=== PATIENT | male | born 1935 | race Caucasian/White ===

== ENCOUNTER 2016-11-25 22:20 | Inpatient (IN) ==
--- NOTE | 2016-11-25 22:51 | Emergency Department Note ---
Arrival - Arrival Chief Complaint: Arrhythmia/Palpitations Stated Complaint: Transfer from [facility] for A-fib RVR ED Nursing Triage Note: Patient went to [facility] for heart palpitations and shortness of breath. Patient was found to be in A-fib with RVR. Patient was given two doses of Lopressor for a total of 7.5 mg of lopressor. Patient was transfered here from [facility] for [facility] level of care and cardiology not avialable at sending facility. Mode of Arrival: Stretcher Limitations: No Limitations Time Seen by Provider: 11/25/16 22:46 - History of Present Illness HPI Narrative: This 81-year-old white male presents on transfer from [facility] for further evaluation of chest pain associated with an episode of atrial fibrillation converted back to sinus. The patient earlier this evening had a rapid irregular heartbeat associated with chest pain but without shortness of breath, nausea, vomiting, or diaphoresis. He reports prior episodes that spontaneously ceased and in fact has been seen by Dr. Roach in an effort to identify his problem. While at [facility] because of initial laboratory findings he underwent CTA which was negative for pulmonary emboli. Likewise notable was negative cardiac enzymes. He was transferred here for further evaluation and treatment as chest pain continued to linger. He still complains of a left lower chest left upper quadrant low-grade discomfort but otherwise is medically stable. Onset (ago): hour(s) (Patient presents 4 hours post incident) Allergies/Adverse Reactions: Allergies Allergy/AdvReac Type Severity Reaction Status Date / Time No Known Allergies Allergy Verified 10/04/15 14:15 Home Medications: Home Medications Medication Instructions Recorded Confirmed Type HYDROcodone/ACETAMIN 10-325 [[place] 1 tablet PO Q3-4H PRN 10/04/15 10/04/15 History 10-325] Medical,Surgical,& Family Hx - Medical History Cardio: History of: Cardiac Dysrhythmia, CAD, Hypertension, Cardiovascular Problems (angina) Rheumatology: History of;: Fibromyalgia Genitourinary: History of: Prostate Problems Gastrointestinal: History of: GERD, GI Problems (STOMACH ULCERS) - Surgical History Cardiac Surgeries: Patient Denies: Cardiac Catheterization Thoracic Surgeries: Patient denies;: Organ Transplant, Lobectomy Neurologic Surgeries: Patient denies: Neurologic Surgery Abdominal Surgeries: Surgical HX of: Cholecystectomy Patient denies: Abdominal Surgery - Social History Smoking Status: Never smoker Frequency of Alcohol Use: None Type of Drug Use: None Exam Physical Examination: GENERAL: Well developed, well nourished elderly white male in no acute distress. HEENT: Normocephalic. No trauma. Moist mucous membranes. EOMI. PERRLA. ENT NML NECK: Supple. No adenopathy. CARDIAC: Regular. No murmurs. Heart rate 79 CHEST: Clear to auscultation. No respiratory distress. O2 sat 99% ABDOMEN: Soft. Nontender. Active bowel sounds. EXTREMITIES: No trauma. Normal ROM. No pedal edema. SKIN: No diaphoresis. No rash. NEURO: Alert. Neuro intact. No focal deficits. Vital Signs: Vital Signs Temperature 97.9 F 11/25/16 22:21 Pulse Rate 79 11/25/16 22:21 Respiratory Rate 18 11/25/16 22:21 Blood Pressure 147/90 11/25/16 22:21 O2 Sat by Pulse Oximetry 99 11/25/16 22:21 Course - Reevaluation(s) Reevaluation #1: Advised patient and family that he would be admitted for serial blood work and observation. - Consultations Consultation #1: Discussed situation with Dr. Roach who felt this was more appropriate to be a hospitalist admission given the patient was currently in sinus and recommended serial enzymes and observation overnight. Cardiology would see in consultation. Consultation #2: Discussed with the hospitalist service who will admit for further evaluation treatment. Results - Labs Labs: Lab per [facility] white blood cell count 8000, hematocrit 35 sodium 133 potassium 3.9 creatinine 0.67 BUN 15 negative troponin negative urinalysis, d-dimer 4.9 - Impressions EKG sinus rhythm with prolonged ME interval. Normal QRS duration. Nonspecific ST changes. No acute injury pattern noted. - Diagnostic Findings Procedure: CT: image reviewed by me, report reviewed by me (CTA no evidence of pulmonary emboli with clear lungs evidence of previous currently documented prostate metastatic disease) Disposition Clinical Impression: Chest pain, Recent atrial fibrillation, Prostate cancer with bony metastases Case discussed with: patient, patient's family Condition: Guarded Time of Disposition: 23:03
[2016-11-25 23:55] LABS: Troponin I Only < 0.015 NG/ML (0.00-0.045)
[2016-11-26] MEDS ORDERED: ENOXAPARIN 30 MG/0.3 ML SYRINGE SUBCUT SCH (00:30)
--- NOTE | 2016-11-26 00:50 | Hospitalist History & Physical ---
<Subha Gilbert - Last Filed: 11/26/16 01:21> Assessment and Plan - Time spent with patient Time spent with patient: Greater than 30 minutes (1) Chest pain Status: Acute Assessment and plan: Admit to hospitalist services. Consult cardiology. Telemetry. O2 per unit protocol. Serial troponins. ASA 325 mg PO daily. Lopressor 12.5 mg PO BID. BNP, Mag and TSH in AM. Current Visit: Yes (2) A-fib Status: Acute Assessment and plan: As above. Current Visit: Yes (3) Hypertension Status: Chronic Assessment and plan: As above. Current Visit: Yes (4) Prostate cancer Status: Chronic Assessment and plan: [place] 5/325 mg PO every 4 hours PRN pain. Current Visit: Yes History of Present Illness Chief complaint: chest pain History of present illness: Mr. German is a 81 year old male with a history of HTN and prostate cancer with osseous metastasis to T5 and pelvis who presented to the ED today with complaints of left sided chest pain radiating into back. Mr. German reports that this evening, he began to have heart palpitations and shortness of breath, which he has had intermittently before. However, this episode continued for an extended period of time and was accompanied by epigastric pressure, prompting him to present to [facility] ED. His work up there showed him to be in atrial fibrillation, and he was subsequently given two doses of Lopressor 5 mg IV after which he converted to sinus rhythm. His cardiac enzymes were negative, but his D-dimer was elevated at 4.63. CT was negative for PE but did show suggestions of pulmonary arterial hypertension, as well as worsening osseous metastatic disease. Because of lingering chest pain, the patient was transferred to [facility]. Just prior to transfer, the patient was given another 2.5 mg dose of Lopressor IV for elevated BP. At [facility], repeated cardiac enzymes were again normal. Currently, he denies chest pain which he states is intermittent in frequency. Hospitalist services were consulted and the patient will be admitted to the telemetry unit for continued evaluation and management. Home Medications Medication Instructions Recorded Confirmed Type HYDROcodone/ACETAMIN 10-325 [[place] 1 tablet PO Q3H 10/04/15 11/26/16 History 10-325] Allergies Allergy/AdvReac Type Severity Reaction Status Date / Time No Known Allergies Allergy Verified 10/04/15 14:15 Medical,Surgical,& Family Hx - Medical History Cardio: History of: Cardiac Dysrhythmia, CAD, Hypertension, Cardiovascular Problems (angina) Rheumatology: History of;: Fibromyalgia Genitourinary: History of: Prostate Problems (Prostate CA) Gastrointestinal: History of: GERD, GI Problems (STOMACH ULCERS) - Surgical History Cardiac Surgeries: Patient Denies: Cardiac Catheterization Thoracic Surgeries: Patient denies;: Organ Transplant, Lobectomy Neurologic Surgeries: Patient denies: Neurologic Surgery Abdominal Surgeries: Surgical HX of: Cholecystectomy Patient denies: Abdominal Surgery - Social History Smoking Status: Former smoker (Quit in 1972) Have you smoked in the last 12 months: No Frequency of Alcohol Use: None Type of Drug Use: None Marital Status: Lives With:: Spouse Functional capacity: independent ambulation 12 point system: reviewed and no additional remarkable complaints except as stated - Constitutional Constitutional: Absent: anorexia, fatigue, fever(s), malaise, weakness - EENT Eyes: Absent: blurry vision, diplopia, loss of vision Ears: Absent: decreased hearing, ear discharge, ear pain Nose, mouth and throat: Absent: headache(s), nasal congestion, sore throat - Cardiovascular Cardiovascular: Present: chest pain at rest, dyspnea, palpitations. Absent: edema, orthopnea - Respiratory Respiratory: Present: dyspnea. Absent: cough, wheezing - Gastrointestinal Gastrointestinal: Present: bloating. Absent: nausea, vomiting - Genitourinary Genitourinary: Absent: dysuria, flank pain, hematuria - Musculoskeletal Musculoskeletal: Present: arthralgias, back pain, myalgias - Neurological Neurological: Absent: confusion, dizziness, numbness, paresthesias, syncope - Psychiatric Psychiatric: Absent: anxiety, depression - Endocrine Endocrine: Absent: cold intolerance, polydipsia, polyphagia, polyuria - Hematologic/Lymphatic Hematologic/Lymphatic: Absent: easy bleeding, easy bruising Exam - Constitutional Vitals: Period Temp Pulse Resp BP Sys/Chao Pulse Ox Last 24 Hr 97.9 F 79 18 147/90 99 Exam: Constitutional System: Afebrile. Awake, alert and oriented x 3. No distress. No tremulousness. Head: Normocephalic, atraumatic. Ears, Nose and Throat System: No pain or tenderness. No epistaxis or discharge Eyes System: Pupils equal, round, and reactive. Extraocular muscles intact. Neck: Supple, without adenopathy, No jugular venous distention. No thyromegaly, neck mass, or prior surgery apparent. Respiratory System: Chest clear to auscultation. Cardiovascular System: Heart with regular rate and rhythm. No murmur. GI System: Abdomen soft, nontender. Normo active bowel sounds present. Musculoskeletal System: limbs with no pedal edema. Full distal pulses. Normal capillary refill. Neurological System: No discernable sensory deficit. No aphasia Psychiatric System: Conversation is rational Results - Labs Lab Results: I have reviewed the past 24 hour labs <Julissa Ferrara - Last Filed: 11/26/16 03:25> History of Present Illness History of present illness: Mr. German is a 81 year old male Exam - Constitutional Vitals: Period Temp Pulse Resp BP Sys/Chao Pulse Ox Last 24 Hr 97.6 F-97.9 F 67-79 18-18 147-172/85-90 97-100 Results - Impressions Patient seen and examined. I have reviewed the H&P by GISELLE Gilbert, and I agree with the documentation. Patient presents to an outside hospital with complaints of intermittent palpitations, sob, and lightheadness. He denied any chest pain. He was found to have A-fib with RVR with heart rates in the 130s. He spontaneously converted back to NSR, and the patient's symptoms abated. states that he has been having recurring episodes over the past 10 years. Episodes have progressively worsened. He had worn event monitors in the past; however, there were no recording of significant arrythmias. Patient currently denies any diarrhea, fevers, or cough. Vitals reviewed. BP is elevated. Cardiopulmonary exam significant for unlabored respirations, clear lung, and heart is regular. Labs from outside facility reviewed. K/mg/tni x 1: normal. EKG here at [place] [facility]: NSR. CT chest done at outside hospital: negative PE; unchanged pulmonary arterial hypertension. Active Issues: 1. Paroxymal a-fib with RVR, now spontaneously converted to NSR 2. h/o Pulmonary arterial hypertension 3. h/o systemic hypertension Plan: admit to telemetry; trend TNIs; check mg/k/tsh/calcium. Add aspirin and lopressor. Control blood pressure. Consult cardiology. Will likely need echo. DVT prophalaxis. The plan of care may be modified as more information becomes available.
[2016-11-26 05:09] LABS: Magnesium 2.6 MG/DL (1.8-2.4); Thyroid Stimulating Hormone 1.24 uIU/ml (0.358-3.74)
[2016-11-26] MEDS: PANTOPRAZOLE 40 MG TABLET PO SCH (08:33)
[2016-11-26] MEDS ORDERED: METOPROLOL TARTRATE 25 MG TABLET PO SCH (09:00)
[2016-11-26] MEDS ORDERED: ASPIRIN EC 325 MG TABLET PO SCH (09:00)
--- NOTE | 2016-11-26 09:50 | EKG Report ---
Stationary ECG Study 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
[2016-11-26 10:18] LABS: Basophils # 0.1 10*3/uL (0.0-0.2); Basophils % 1.1 % (0.0-0.8); Eosinophils # 0.7 10*3/uL (0.0-0.87); Eosinophils % 9.1 % (0.00-10.9); Hematocrit 34.6 VOL% (42.0-52.0); Hemoglobin 11.7 GM/DL (14.0-18.0); Immature Granulocytes % 1.5 %; Immature Granulocytes Absolute 0.11 #; Lymphocytes # 2.2 10*3/uL (1.4-4.0); Lymphocytes % 30.2 % (21.2-54.2); Mean Corpuscular HGB Conc 33.8 GM/DL (32-36); Mean Corpuscular Hemoglobin 30 PG (27-34); Mean Corpuscular Volume 88.5 FL (87-102); Mean Platelet Volume 9.5 FL (9.6-12.0); Monocytes # 0.8 10*3/uL (0.11-0.8); Monocytes % 10.8 % (1.7-12.7); Neutrophils # 3.4 10*3/uL (1.4-7.4); Neutrophils % 47.3 % (38.7-73.9); Platelet Count 246 T/CUMM (130-400); Red Blood Count 3.91 MC/CUMM (3.8-5.5); Red Cell Distribution Width 12.9 % (9.3-17.3); White Blood Count 7.2 T/CUMM (4-12)
[2016-11-26] MEDS: BISACODYL 5 MG TABLET PO SCH (10:27)
[2016-11-26] MEDS: APIXABAN 2.5 MG TABLET PO SCH ×2 (10:27→22:22)
[2016-11-26 10:53] LABS: Albumin 3.2 G/DL (3.4-5.0); Bilirubin,Total 0.4 MG/DL (0.2-1.0); Calcium 7.8 MG/DL (8.5-10.1); Total Protein 6.8 G/DL (6.4-8.3)
--- NOTE | 2016-11-26 11:26 | Hospitalist Progress Note ---
Assessment and Plan (1) A-fib Status: Acute Assessment and plan: Currently in sinus rhythm, continue metoprolol started low-dose Eliquis, discuss with Dr. Villalobos, echocardiogram ordered Current Visit: Yes (2) Chest pain Status: Acute Assessment and plan: Serial troponins negative. Dr. Villalobos will see him. Hold aspirin for now. Current Visit: Yes (3) Hypertension Status: Chronic Assessment and plan: Controlled on metoprolol Current Visit: Yes (4) Prostate cancer Status: Chronic Assessment and plan: Continue [place] 10 mg every 3 hours. Will add Dulcolax to prevent constipation Current Visit: Yes Hospitalist: Subjective Interval history: Patient has metastatic prostate cancer. He takes [place] 10 mg every 3 hours. He has been taking him out of his own supply. I attempted to discuss adding low -dose fentanyl patch but he said he could not breathe last time they put him on fentanyl. Patient is currently in sinus rhythm. I very discussed his case with Dr. Villalobos who is going to see him shortly. Discussed starting on a low- dose Eliquis. He had an episode of this previously of tachycardia but was in sinus rhythm the time he arrived at the hospital. Patient reports some hematuria in the past. We will repeat his UA. Hold aspirin for now and Lovenox. Discussed CODE STATUS with him he will remain a full code code for now. Discussed risks of stroke with proximal atrial fib until he is high risk without starting blood thinners. Exam - Constitutional Vitals: Period Temp Pulse Resp BP Sys/Chao Pulse Ox Last 24 Hr 97.5 F-97.9 F 66-79 15-18 138-172/71-90 92-100 Exam: Heart Rate-[RRR] Lungs-[CTAB] GI-[+bs soft, NT] Ext-[no edema] Neuro [Motor 5/5], [alert and oriented times 3] psych [normal mood and affect] General [no acute distress] Results - Labs CBC & BMP: 11/26/16 10:08 11/26/16 10:08 Lab Results: I have reviewed the past 24 hour labs
[2016-11-26] MEDS: ASCORBIC ACID 500 MG TABLET PO SCH ×2 (11:35→22:22)
--- NOTE | 2016-11-26 11:43 | Cardiology Consult Note ---
History of Present Illness - Data of Consult Patient: new to practice Consult date: 11/26/16 - Consult Narrative History of present illness: Cardiology consult 81-year-old man transferred from the [facility] with new onset atrial fibrillation. Patient was treated with 5 mg IV Lopressor 2 and converted chemically back to sinus rhythm. The patient has felt irregular heartbeats before but never this sustained. He does have chronic dyspnea. CT of the chest was negative for pulmonary embolus at [facility]. He does not drink coffee but consumes 32 ounces of RC cola daily. He does not drink ice tea. He does not drink any alcohol. He quit smoking in 1972. He had a normal nuclear stress test December 18, 2013 with ejection fraction 56 %. He has been on HCTZ for hypertension in the past but does not take it regularly. Blood pressure 164/90 on presentation. No history of stroke or TIA. No history of diabetes. Patient does have chronic dyspnea and easy fatigability. He sleeps on one pillow and has nocturia 3 or 4 times nightly which is chronic. Patient is 6 feet 3 and weighs 190 pounds. He weighs 212 pounds 6 months ago. The patient was diagnosed with metastatic prostate cancer in 2013. He has been taking Lupron injections and xtandia by Dr. Tafoya. A bone scan done in July 2016 showed progression of bony metastases. He is taking [place] 10/325 mg every 4 hours as needed. Surgeries include laparoscopically cystectomy, right rotator cuff repair, right hernia repair, EKG shows sinus rhythm with preserved airways and ST-T wave changes. Lab data White count 7.2 hemoglobin 11.7 hematocrit 34.6 MCV of 88 sodium 136 potassium 4.0 chloride 103 CO2 27 BUN 13 creatinine 0.7 glucose 107 magnesium 2.6 AST 19 ALT 11 alk phos 302 with negative troponin 2 BNP 122 albumin 3.2 Blood pressure 144/80 pulse is 78 and regular aspirations 18 bilateral arcus. No xanthelasma. Flat neck veins. Decreased breath sounds but clear regular rhythm no murmur or gallop no chest wall tenderness to palpation abdomen soft and benign. Femoral pulses 2+ distal pulses 2+ no edema Impression New onset atrial fibrillation with atypical chest pain and shortness of breath. Converted chemically with IV Lopressor at [facility] Metastatic prostate cancer initially diagnosed 2013 with progressive bony lesions by bone scan July [address] Tafoya. History of hypertension Remote tobacco abuse Weight loss. 6 feet 3 inches tall 190 pounds. Patient weight 212 pounds 6 months ago Chronic dyspnea and easy fatigability which has progressed Atypical chest pain Status post laparoscopic cholecystectomy Plan Begin Eliquis 2.5 g twice daily Echo Doppler Lexiscan cardiac stress test in a.m. 830 Metoprolol 25 g twice daily Findings and plan discussed with patient and his and 2 daughters. Nurse Matilda present for the full discussion CC: Lori Quan MD - Home Medications and Allergies Home Medications: Home Medications Medication Instructions Recorded Confirmed Type HYDROcodone/ACETAMIN 10-325 [[place] 1 tablet PO Q3H 10/04/15 11/26/16 History 10-325] Allergies/Adverse Reactions: Allergies Allergy/AdvReac Type Severity Reaction Status Date / Time No Known Allergies Allergy Verified 10/04/15 14:15 Medical,Surgical,& Family Hx - Medical History Cardio: History of: Cardiac Dysrhythmia, CAD, Hypertension, Cardiovascular Problems (angina) Rheumatology: History of;: Fibromyalgia Genitourinary: History of: Prostate Problems (Prostate CA) Gastrointestinal: History of: GERD, GI Problems (STOMACH ULCERS) - Surgical History Cardiac Surgeries: Patient Denies: Cardiac Catheterization Thoracic Surgeries: Patient denies;: Organ Transplant, Lobectomy Neurologic Surgeries: Patient denies: Neurologic Surgery Abdominal Surgeries: Surgical HX of: Cholecystectomy Patient denies: Abdominal Surgery - Family History Family History: Reports;: Family Cancer (brother), Family Heart Disease, Family Hypertension - Social History Smoking Status: Former smoker (Quit in 1972) Frequency of Alcohol Use: None Type of Drug Use: None Physical Examination Vital Signs Temp Pulse Resp BP Pulse Ox 97.9 F 79 18 147/90 99 11/25/16 22:21 11/25/16 22:21 11/25/16 22:21 11/25/16 22:21 11/25/16 22:21 Result/EKG - Labs CBC & BMP: 11/26/16 10:08 11/26/16 10:08 Labs: Laboratory Results - last 24 hr 11/25/16 11/26/16 11/26/16 23:23 04:08 04:08 WBC RBC Hgb Hct MCV MCH MCHC RDW Plt Count MPV Neut % (Auto) Lymph % (Auto) [place] % (Auto) Eos % (Auto) Baso % (Auto) Neut # (Auto) Lymph # (Auto) Pep[place] # (Auto) Eos # (Auto) Baso # (Auto) Immature Gran % Nucleated RBC % Immature Gran # Nucleated RBCs # Immature Plt Fraction Sodium Potassium Chloride Carbon Dioxide Anion Gap BUN Creatinine GFR Calculation BUN/Creatinine Ratio Glucose Calculated Osmolality Calcium Magnesium 2.6 H Total Bilirubin AST ALT Alkaline Phosphatase Total Creatine Kinase 78 CK-MB (CK-2) < 1.0 Troponin I < 0.015 B-Natriuretic Peptide 122 H Total Protein Albumin Globulin Albumin/Globulin Ratio PSA Diagnostic TSH 3rd Generation 1.240 11/26/16 11/26/16 11/26/16 04:08 10:08 10:08 WBC 7.2 RBC 3.91 Hgb 11.7 L Hct 34.6 L MCV 88.5 MCH 30 MCHC 33.8 RDW 12.9 Plt Count 246 MPV 9.5 L Neut % (Auto) 47.3 Lymph % (Auto) 30.2 [place] % (Auto) 10.8 Eos % (Auto) 9.1 Baso % (Auto) 1.1 H Neut # (Auto) 3.4 Lymph # (Auto) 2.2 Pepin # (Auto) 0.8 Eos # (Auto) 0.7 Baso # (Auto) 0.1 Immature Gran % 1.5 Nucleated RBC % 0.0 Immature Gran # 0.11 Nucleated RBCs # 0.00 Immature Plt Fraction 0.0 Sodium 136 Potassium 4.0 Chloride 103 Carbon Dioxide 27 Anion Gap 10.0 BUN 13 Creatinine 0.70 GFR Calculation 111 BUN/Creatinine Ratio 18.00 Glucose 107 H Calculated Osmolality 271.0 L Calcium 7.8 L Magnesium Total Bilirubin 0.40 AST 19 ALT 11 L Alkaline Phosphatase 302 H Total Creatine Kinase CK-MB (CK-2) Troponin I < 0.015 B-Natriuretic Peptide Total Protein 6.8 Albumin 3.2 L Globulin 3.6 H Albumin/Globulin Ratio 0.8 L PSA Diagnostic TSH 3rd Generation 11/26/16 10:13 WBC RBC Hgb Hct MCV MCH MCHC RDW Plt Count MPV Neut % (Auto) Lymph % (Auto) Pep[place] % (Auto) Eos % (Auto) Baso % (Auto) Neut # (Auto) Lymph # (Auto) Pepin # (Auto) Eos # (Auto) Baso # (Auto) Immature Gran % Nucleated RBC % Immature Gran # Nucleated RBCs # Immature Plt Fraction Sodium Potassium Chloride Carbon Dioxide Anion Gap BUN Creatinine GFR Calculation BUN/Creatinine Ratio Glucose Calculated Osmolality Calcium Magnesium Total Bilirubin AST ALT Alkaline Phosphatase Total Creatine Kinase CK-MB (CK-2) Troponin I B-Natriuretic Peptide Total Protein Albumin Globulin Albumin/Globulin Ratio PSA Diagnostic 24.4 H TSH 3rd Generation
--- NOTE | 2016-11-26 13:09 | XRay Report ---
Portable chest November 26, 2016 Indication: Shortness of breath Comparison images performed previous day at 0612 hours Findings: Cardiomediastinal contours are stable. Lungs remain clear. No acute osseous abnormalities. Impression: No acute cardiopulmonary findings PROCEDURE INTERPRETED AT [facility] DEPARTMENT OF RADIOLOGY Final Report Signed by: Kiel eJwell
[2016-11-26 13:21] LABS: Apearance,Urine CLEAR (Clear); Bilirubin,Urine Negative (Negative); Blood, Urine Negative (Negative); Glucose,Urine (UA) Negative (Negative); Hyaline Casts,Urine 3 /LPF (0-3); Ketones,Urine Negative (Negative); Mucus,Urine Occasional /LPF (Occasional); Nitrite,Urine Negative (Negative); Protein,Urine Negative; RBC,Urine 1 /HPF (0-4); Urine Color Yellow (Yellow); Urine Specific Gravity 1.025 (1.001-1.035); WBC,Urine <1 /HPF (0-6)
--- NOTE | 2016-11-26 13:33 | ECHO Report ---
Jonathon German Exam Date: 11/26/2016 11:37 Referring Physician: Technologist: Lisa Estevez Age: 81 Ht (in): 75 Wt (lb): 190 Gender: M Exam Location: [facility] Echo Indications: SOB, chest pain, A fib, HTN, prostate CA BP: 138 / 71 HR: 68 Rhythm: Sinus Technical Quality: Fair IMPRESSIONS Left ventricular ejection fraction is estimated at 55-60 %. Grade II/IV diastolic dysfunction, moderately elevated filling pressures. Normal right ventricular size. The right atrium is mildly enlarged. The left atrium is mildly enlarged. Morphologically normal mitral valve. Trace mitral valve regurgitation. Aortic valve sclerosis. Trace aortic valve regurgitation. Mild tricuspid valve regurgitation. PAP40 mmHG. Morphologically normal pulmonic valve. No pericardial effusion. Normal size aortic root and proximal ascending aorta. MEASUREMENTS (Male / Female) Normal Values 2D ECHO LV Diastolic Diameter PLAX 4.6 cm 4.2 - 5.9 / 3.9 - 5.3 cm LV Systolic Diameter PLAX 3.0 cm LV Fractional Shortening PLAX 34.3 % IVS Diastolic Thickness 1.0 cm 0.6 - 1.0 / 0.6 - 0.9 cm LVPW Diastolic Thickness 1.2 cm 0.6 - 1.0 / 0.6 - 0.9 cm Aortic Root Diameter 2.6 cm LA Systolic Diameter LX 3.3 cm 3.0 - 4.0 / 2.7 - 3.8 cm DOPPLER TR Peak Velocity 228.0 cm/s TR Peak Gradient 20.8 mmHg FINDINGS Left Ventricle Left ventricular ejection fraction is estimated at 55-60 %. Grade II/IV diastolic dysfunction, moderately elevated filling pressures. Right Ventricle Normal right ventricular size. Right Atrium The right atrium is mildly enlarged. Left Atrium The left atrium is mildly enlarged. Mitral Valve Morphologically normal mitral valve. Trace mitral valve regurgitation. Aortic Valve Aortic valve sclerosis. Trace aortic valve regurgitation. Tricuspid Valve Morphologically normal tricuspid valve. Mild tricuspid valve regurgitation. PAP40 mmHG. Pulmonic Valve Morphologically normal pulmonic valve. Pericardium No pericardial effusion. Aorta Normal size aortic root and proximal ascending aorta. William Villalobos (Electronically Signed) Final Date: 26 November 2016 13:32
[2016-11-26] MEDS: hydrALAZINE 20 MG/1 ML VIAL IV PRN (19:30)
[2016-11-26] MEDS: METOPROLOL TARTRATE 25 MG TABLET PO SCH (20:50)
[2016-11-26] MEDS ORDERED: LABETALOL 20 MG/4 ML SYRINGE IV ONE (21:17)
[2016-11-26] MEDS ORDERED: LISINOPRIL 10 MG TABLET PO SCH (21:19)
[2016-11-27 05:12] LABS: Basophils # 0.1 10*3/uL (0.0-0.2); Basophils % 0.7 % (0.0-0.8); Eosinophils # 0.2 10*3/uL (0.0-0.87); Eosinophils % 2.5 % (0.00-10.9); Hematocrit 33.1 VOL% (42.0-52.0); Hemoglobin 11.2 GM/DL (14.0-18.0); Immature Granulocytes % 2.5 %; Immature Granulocytes Absolute 0.18 #; Lymphocytes # 1.6 10*3/uL (1.4-4.0); Lymphocytes % 21.5 % (21.2-54.2); Mean Corpuscular HGB Conc 33.8 GM/DL (32-36); Mean Corpuscular Hemoglobin 30 PG (27-34); Mean Corpuscular Volume 87.6 FL (87-102); Mean Platelet Volume 9.9 FL (9.6-12.0); Monocytes # 0.7 10*3/uL (0.11-0.8); Monocytes % 9.7 % (1.7-12.7); Neutrophils # 4.5 10*3/uL (1.4-7.4); Neutrophils % 63.1 % (38.7-73.9); Platelet Count 218 T/CUMM (130-400); Red Blood Count 3.78 MC/CUMM (3.8-5.5); White Blood Count 7.2 T/CUMM (4-12)
[2016-11-27] MEDS ORDERED: ONDANSETRON 4 MG/2 ML VIAL ONE (08:02)
[2016-11-27] MEDS: ONDANSETRON 4 MG/2 ML VIAL IV PRN ×2 (08:33→20:23)
[2016-11-27] MEDS: METOPROLOL TARTRATE 25 MG TABLET PO SCH ×2 (12:44→21:03)
[2016-11-27] MEDS: PANTOPRAZOLE 40 MG TABLET PO SCH (12:45)
[2016-11-27] MEDS: ASCORBIC ACID 500 MG TABLET PO SCH ×2 (12:45→21:04)
[2016-11-27] MEDS: BISACODYL 5 MG TABLET PO SCH (12:46)
[2016-11-27] MEDS: APIXABAN 2.5 MG TABLET PO SCH ×2 (12:46→21:03)
--- NOTE | 2016-11-27 14:07 | Cardiology Progress Note ---
Cardiology - PN: Subj Interval history: Cardiology note 81-year-old man with new onset atrial fibrillation. Converted with IV Lopressor 2. Tires easily. Blood pressure was running high last night and lisinopril started. Regular rhythm no murmur. Decreased breath sounds but clear. Normal exercise cardiac stress test today. No scar or ischemia. EF 55%. Low risk scan. Impression New onset atrial fibrillation converted with IV Lopressor Hypertension Remote tobacco abuse Weight loss 6 feet 3 inches tall 190 pounds. Patient weight 212 pounds 6 months ago Chronic dyspnea and easy fatigability which has progressed Unsteady gait Status post laparoscopic cholecystectomy Metastatic prostate cancer diagnosed 2013 now with progressive bony lesions by bone scan July [address] Tafoya. History of GE stricture dilatation by Dr. Abel Porter Plan Ambulate and monitor. Patient needs a cane or walker at all times for gait support Metoprolol 25 mg twice daily Eliquis 2.5 mg twice daily Increase lisinopril 10 mg twice daily Home tomorrow if he maintains sinus rhythm Exam (Progress Note) - Constitutional Vitals: Period Temp Pulse Resp BP Sys/Chao Pulse Ox Last 24 Hr 96.2 F-98.5 F 68-76 16-20 156-188/88-98 95-97 Result/EKG - Labs CBC & BMP: 11/27/16 04:58 11/26/16 10:08 Labs: Laboratory Results - last 24 hr 11/26/16 11/27/16 13:14 04:58 WBC 7.2 RBC 3.78 L Hgb 11.2 L Hct 33.1 L MCV 87.6 MCH 30 MCHC 33.8 RDW 13.0 Plt Count 218 MPV 9.9 Neut % (Auto) 63.1 Lymph % (Auto) 21.5 Grand % (Auto) 9.7 Eos % (Auto) 2.5 Baso % (Auto) 0.7 Neut # (Auto) 4.5 Lymph # (Auto) 1.6 Grand # (Auto) 0.7 Eos # (Auto) 0.2 Baso # (Auto) 0.1 Immature Gran % 2.5 Nucleated RBC % 0.0 Immature Gran # 0.18 Nucleated RBCs # 0.00 Immature Plt Fraction 0.0 Urine Color Yellow Urine Appearance Clear Urine pH 6.0 Ur Specific [place] 1.025 Urine Protein Negative Urine Glucose (UA) Negative Urine Ketones Negative Urine Blood Negative Urine Nitrate Negative Urine Bilirubin Negative Urine Urobilinogen 2.0 H Urine Leukocytes Negative Urine RBC 1 Urine WBC <1 Hyaline Casts 3 Urine Mucus Occasional Ur Culture Indicated? Not indicated
[2016-11-27] MEDS: hydrALAZINE 20 MG/1 ML VIAL IV PRN (16:17)
--- NOTE | 2016-11-27 16:32 | Hospitalist Progress Note ---
Assessment and Plan (1) A-fib Status: Acute Assessment and plan: Remains in sinus rhythm, continue metoprolol twice daily, continue Eliquis Current Visit: Yes (2) Chest pain Status: Acute Assessment and plan: Stress test done today was negative Current Visit: Yes (3) Hypertension Status: Chronic Assessment and plan: Not controlled added losartan Current Visit: Yes (4) Prostate cancer Status: Chronic Assessment and plan: Continue [place] 10 mg every 3 hours. Will add Dulcolax to prevent constipation, patient again refuses any change in his pain medicines. Patient should be discharged home tomorrow Current Visit: Yes Hospitalist: Subjective Interval history: Patient's family said he had a rough night that his blood pressure became extremely elevated. I will start him on losartan. Dr. Villalobos and ordered some lisinopril but it has not been started. Patient had an exercise stress test today and did well. Patient remains in sinus rhythm. Family was under the impression he was tachycardic last night but I have reviewed his rhythms and he was not. Family asked for Dr. Tafoya to be consulted but Dr. Mendoza is on and they do not want to see him. Patient will be more comfortable at home. He has evidence of metastatic cancer. Most likely there is nothing more that can be offered other than pain relief. I again tried to discuss his pain relief with him again today. He refused any additional pain medicines. Exam - Constitutional Vitals: Period Temp Pulse Resp BP Sys/Chao Pulse Ox Last 24 Hr 97.9 F-98.9 F 68-82 18-20 141-188/77-98 95-97 Exam: Heart Rate-[RRR] Lungs-[CTAB] GI-[+bs soft, NT] Ext-[no edema] Neuro [Motor 5/5], [alert and oriented times 3] psych [normal mood and affect] General [no acute distress] Results - Labs CBC & BMP: 11/27/16 04:58 11/26/16 10:08 Lab Results: I have reviewed the past 24 hour labs
--- NOTE | 2016-11-27 17:42 | Nuclear Medicine Report ---
DATE OF STUDY: 11/27/2016 EXERCISE CARDIOLITE GATED SPECT PERFUSION STUDY: PROCEDURE: EXERCISE CARDIOLITE GATED SPECT PERFUSION STUDY. INITIAL IMPRESSION: 1. A 81-YEAR-OLD MAN WITH ATYPICAL CHEST PAIN. 2. HYPERTENSION. 3. ATRIAL FIBRILLATION. 4. ABNORMAL ELECTROCARDIOGRAM. FINAL IMPRESSION: NORMAL EXERCISE CARDIOLITE GATED SPECT PERFUSION STUDY. I. DESCRIPTION OF PROCEDURE: The patient received 10.0 mCi of Technetium-99m, Cardiolite IV, and re st imaging was obtained in the routine manner 20 minutes later. The patient then walked for 4 minute s on the modified Stefan protocol, and achieved a peak heart rate of 104, which is 75% of his predicte d maximal heart rate. At peak exercise, 30.0 mCi of Technetium-99m, Cardiolite IV was injected, and stress imaging was obtained in the routine manner 20 minutes later. Serial electrocardiograms were p erformed. The initial blood pressure was 146/90, and it was 160/86 immediately post exercise. II. RESULTS: The patient had no chest pain or arrhythmias and the test was terminated due to shortn ess of breath and fatigue. A resting EKG demonstrates normal sinus rhythm with preserved R-waves and ST-T wave changes. With exercise, no diagnostic EKG changes occurred. Rare isolated PVCs were note d. Tomographic imaging demonstrates homogeneous uptake of radioisotope in all segments. There is no aislinn dence for ischemia or scar. Gated SPECT imaging demonstrates normal wall motion and thickening in al l segments. The calculated ejection fraction is 55%. III. CONCLUSION: 1. CLINICALLY AND ELECTROCARDIOGRAPHICALLY NEGATIVE. 2. POOR WORK CAPACITY. 3. SCINTIGRAPHICALLY NORMAL PERFUSION STUDY. IV. DISPOSITION: The patient should be reassured regarding the lack of any evidence for significant coronary artery disease at this time. He had no chest pain or diagnostic EKG changes and tomographi c imaging is normal. In addition, ventricular function is well preserved, ejection fraction 55%. Th is is a low-risk scan. Continued medical therapy and risk factor modification recommended. Procedure performed and interpreted at [facility] Department of Radiology.
[2016-11-27] MEDS: LOSARTAN 50 MG TABLET PO SCH (18:29)
[2016-11-27] MEDS ORDERED: LISINOPRIL 10 MG TABLET PO SCH (21:17)
[2016-11-28] MEDS: LOSARTAN 50 MG TABLET PO SCH (08:13)
[2016-11-28] MEDS: ASCORBIC ACID 500 MG TABLET PO SCH (08:13)
[2016-11-28] MEDS: BISACODYL 5 MG TABLET PO SCH (08:14)
[2016-11-28] MEDS: APIXABAN 2.5 MG TABLET PO SCH (08:14)
[2016-11-28] MEDS: PANTOPRAZOLE 40 MG TABLET PO SCH (08:14)
[2016-11-28] MEDS: METOPROLOL TARTRATE 25 MG TABLET PO SCH (08:14)
[2016-11-28] MEDS ORDERED: LOSARTAN 25 MG TABLET PO SCH (08:29)
[2016-11-28] MEDS ORDERED: SODIUM CHLORIDE 0.9% 250 ML IV ONE (08:31)
--- NOTE | 2016-11-28 08:31 | Discharge Summary ---
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 Dr. Villalobos from cardiology was consulted and patient was chemically converted with IV Lopressor to sinus rhythm. He did receive an echocardiogram that showed a EF of 55-60%. Patient's stress test was normal along with his perfusion study. Patient is doing well and feeling better. He has had some issues with some low blood pressure overnight with increased weakness. His blood pressure medicines have been adjusted and new prescriptions have been written. Patient has several daughters who will help him at home and he is not requiring home health at this time. He will be discharged home with a follow-up with Dr. Ring in [place], Dr. Tafoya tomorrow , and Dr. Villalobos as well. Complete discharge instructions were given to the patient and his family members present. Care coordination, chart review, and completed discharge paperwork took approximately 45 minutes. Patients blood pressure meds were modified and he was started on eliquis and a baby aspirin. Patient seen and examined. Hospital course reviewed and edited. - Time spent with patient Time with patient DS: Greater than 30 minutes Diagnosis - Discharge Diagnosis (1) Chest pain Status: Resolved (2) A-fib Status: Resolved (3) Hypertension Status: Chronic (4) Prostate cancer Status: Chronic Specialty Discharge - Follow Up or Referrals Follow up with: Caleb Tafoya MD [Physician] - (as scheduled ) Khanh Villalobos MD [Physician] - 1 Week (htn ) Discharge Plan - Discharge Data Disposition: Disch To Home/Self Care Contact your physician if you experience:: Shortness of breath, pain uncontrolled by pain medications - Discharge Medications New Ascorbic Acid Tab [Vitamin C Tab] 1,000 mg PO BID tablet Bisacodyl Tab [Dulcolax Tab] 10 mg PO DAILY tablet Losartan [Cozaar] 25 mg PO DAILY #30 tablet Metoprolol Tartrate Tab [Lopressor Tab] 25 mg PO BID #60 tablet Apixaban [Eliquis] 2.5 mg PO BID #60 tablet Aspirin EC Tab 81 mg PO DAILY #30 tablet Continue HYDROcodone/ACETAMIN 10-325 [[place] 10-325] 1 tablet PO Q3H - Follow Up or Referral Follow Up: Khanh Villalobos MD [Physician] - 1 Week (htn ) Caleb Tafoya MD [Physician] - (as scheduled ) - Forms/Instructions Instructions: Atrial Fibrillation (DC), Heart Healthy Diet (DC) Exam - Constitutional Vitals: Period Temp Pulse Resp BP Sys/Chao Pulse Ox Last 24 Hr 98 F-99.7 F 66-82 18-20 100-161/58-88 92-98 DS: Provider Date of admission: 11/26/16 10:10 Primary care physician: Maxim Ring M.D. Attending physician on admission: Julissa Ferrara MD Consults: 11/26/16 01:18 Consult to Physician [CONS] Routine Comment: A-fib; chest pain Consulting Provider: Abner Colon 11/26/16 01:26 Consult to Dietitian [CONS] Routine Reason for Dietitian: Other 11/26/16 03:23 Consult to Physician [CONS] Routine Comment: paroxymal a-fib Consulting Provider: Khanh Villalobos When should Consulting Provider be notified: In am Discharging clinician: SRINIVASA Crespo Expected date of discharge: 11/28/16 <Lori Quan - Last Filed: 11/28/16 10:30> Hospital Course - Time spent with patient Time with patient DS: Greater than 30 minutes (45 min) Diagnosis - Discharge Diagnosis (1) A-fib Status: Resolved (2) Chest pain Status: Resolved (3) Hypertension Status: Chronic (4) Prostate cancer Status: Chronic Discharge Plan - Discharge Data Condition at Discharge: Stable Discharge Diet: heart healthy Activity: resume usual activities as tolerated Hygiene: no restrictions Weight Bearing at Discharge: full weight bearing Driving: other (no driving while on narcotics) Exam - Constitutional General appearance: normal weight, no acute distress - Respiratory Respiratory exam: Present: clear to auscultation bilaterally. Absent: rhonchi, wheezes - Cardiovascular Cardiovascular exam: Present: regular rate and rhythm. Absent: systolic murmur - GI/Abdominal GI/Abdominal exam: Present: normal bowel sounds, soft. Absent: tenderness - Neurological Exam Neurological exam: Present: alert, oriented X3, CN II-XII intact, reflexes normal. Absent: motor sensory deficit - Psychiatric Psychiatric exam: Present: normal affect, normal mood
--- NOTE | 2016-11-28 11:20 | Cardiology Progress Note ---
Cardiology - PN: Subj Interval history: Cardiology note No further atrial fibrillation. Blood pressure 112/70 in the right arm by me Regular rhythm no gallop Clear lungs Abdomen benign Impression New onset atrial fibrillation converted with IV Lopressor Hypertension Remote tobacco abuse Weight loss 643 inches tall 187 pounds. 212 pounds 6 months ago. Chronic dyspnea Unsteady gait Status post laparoscopic cholecystectomy Metastatic prostate cancer diagnosed 2013 with progressive bony lesions by bone scan July 2016 follow-up with Dr. Muniz History of GE stricture dilatation by Dr. Abel Louis Plan Agree with discharge Metoprolol 25 mg twice daily Cozaar 25 mg daily Eliquis 2.5 g twice daily Office visit with EKG in 1 week Exam (Progress Note) - Constitutional Vitals: Period Temp Pulse Resp BP Sys/Chao Pulse Ox Last 24 Hr 98 F-99.7 F 66-82 18-20 100-161/58-88 92-98 Result/EKG - Labs CBC & BMP: 11/27/16 04:58 11/26/16 10:08 Specialty Discharge - Follow Up or Referrals Follow up with: Caleb Tafoya MD [Physician] - (as scheduled ) Khanh Villalobos MD [Physician] - 1 Week (htn )
[2016-11-28 11:47] VITALS: BP 122/68
== END 2016-11-28 11:42 | disposition home or self-care (01) | DRG 309 ==
LOC: EDUNIT# → EDBD → N.ED 22:20 → N.EDINP 22:20 → SUATTDRO 11-26 00:10 → N.TELEN 11-26 00:55
PROVIDERS: ADMIT Internal Medicine; ATTEND Internal Medicine

== ENCOUNTER 2017-01-16 08:48 | Observation (INO) ==
[2017-01-16] MEDS ORDERED: NITROGLYCERIN 2% OINT 1 INCH/GM PACK TOP STA (09:26)
[2017-01-16] MEDS ORDERED: ASPIRIN 325 MG TABLET PO STA (09:26)
[2017-01-16] MEDS ORDERED: METOPROLOL TARTRATE 25 MG TABLET PO STA (09:26)
[2017-01-16 09:36] LABS: Basophils # 0.1 10*3/uL (0.0-0.2); Basophils % 0.7 % (0.0-0.8); Eosinophils # 0.6 10*3/uL (0.0-0.87); Eosinophils % 7.8 % (0.00-10.9); Hematocrit 28.2 VOL% (42.0-52.0); Hemoglobin 9.3 GM/DL (14.0-18.0); Immature Granulocytes % 4.4 %; Immature Granulocytes Absolute 0.31 #; Lymphocytes # 1.5 10*3/uL (1.4-4.0); Lymphocytes % 20.5 % (21.2-54.2); Mean Corpuscular Hemoglobin 28 PG (27-34); Mean Corpuscular Volume 85.7 FL (87-102); Mean Platelet Volume 9.3 FL (9.6-12.0); Monocytes # 0.7 10*3/uL (0.11-0.8); Monocytes % 10.3 % (1.7-12.7); Neutrophils % 56.3 % (38.7-73.9); Platelet Count 244 T/CUMM (130-400); Red Blood Count 3.29 MC/CUMM (3.8-5.5); Red Cell Distribution Width 15.9 % (9.3-17.3); White Blood Count 7.1 T/CUMM (4-12)
[2017-01-16] MEDS ORDERED: ASPIRIN 325 MG TABLET ONE (09:40)
[2017-01-16] MEDS ORDERED: NITROGLYCERIN 2% OINT 1 INCH/GM PACK TOP ONE (09:40)
[2017-01-16] MEDS ORDERED: METOPROLOL TARTRATE 25 MG TABLET ONE (09:40)
[2017-01-16 09:41] LABS: PT Patient Result 10.7 SECS
[2017-01-16] MEDS ORDERED: ONDANSETRON 4 MG/2 ML VIAL ONE (09:51)
[2017-01-16] MEDS ORDERED: ONDANSETRON 4 MG/2 ML VIAL IV STA (09:51)
[2017-01-16 09:59] LABS: Albumin 2.5 G/DL (3.4-5.0); Bilirubin,Total 0.4 MG/DL (0.2-1.0); Calcium 7.3 MG/DL (8.5-10.1); Magnesium 2.3 MG/DL (1.8-2.4); Osmolality,Calculated 270.1 MOS/KG (273-304); Potassium 3.9 MMOL/L (3.5-5.1); Total Protein 6.2 G/DL (6.4-8.3)
[2017-01-16] MEDS ORDERED: MORPHINE 2 MG/1 ML SYRINGE IV STA (10:15)
[2017-01-16] MEDS ORDERED: MORPHINE 2 MG/1 ML SYRINGE ONE (10:45)
[2017-01-16] MEDS ORDERED: DOCUSATE SODIUM 100 MG CAPSULE PO PRN (12:29)
[2017-01-16] MEDS ORDERED: ACETAMINOPHEN 325 MG TABLET PO PRN (12:29)
[2017-01-16] MEDS ORDERED: ONDANSETRON 4 MG/2 ML VIAL IV PRN (12:29)
[2017-01-16] MEDS ORDERED: LACTULOSE 20 GM/30 ML UDCUP PO PRN (12:29)
[2017-01-16] MEDS ORDERED: MORPHINE 2 MG/1 ML SYRINGE IV PRN (12:29)
[2017-01-16] MEDS: ASPIRIN EC 81 MG TABLET PO SCH (14:16)
[2017-01-16] MEDS: ENOXAPARIN 40 MG/0.4 ML SYRINGE SUBCUT SCH (14:56)
[2017-01-16] MEDS: METOPROLOL TARTRATE 25 MG TABLET PO SCH (21:02)
[2017-01-17 03:50] LABS: Basophils % 0.6 % (0.0-0.8); Calcium 7.4 MG/DL (8.5-10.1); Eosinophils # 0.7 10*3/uL (0.0-0.87); Eosinophils % 10.5 % (0.00-10.9); Hematocrit 27.4 VOL% (42.0-52.0); Hemoglobin 8.9 GM/DL (14.0-18.0); Immature Granulocytes % 4.7 %; Immature Granulocytes Absolute 0.31 #; Lymphocytes # 1.8 10*3/uL (1.4-4.0); Lymphocytes % 27.1 % (21.2-54.2); Mean Corpuscular HGB Conc 32.5 GM/DL (32-36); Mean Corpuscular Hemoglobin 28 PG (27-34); Mean Corpuscular Volume 87.3 FL (87-102); Mean Platelet Volume 9.4 FL (9.6-12.0); Monocytes # 0.6 10*3/uL (0.11-0.8); Monocytes % 8.7 % (1.7-12.7); Neutrophils # 3.2 10*3/uL (1.4-7.4); Neutrophils % 48.4 % (38.7-73.9); Platelet Count 270 T/CUMM (130-400); Potassium 4.5 MMOL/L (3.5-5.1); Red Blood Count 3.14 MC/CUMM (3.8-5.5); White Blood Count 6.6 T/CUMM (4-12)
[2017-01-17] MEDS: METOPROLOL TARTRATE 25 MG TABLET PO SCH (08:12)
[2017-01-17] MEDS: ASPIRIN EC 81 MG TABLET PO SCH (08:12)
[2017-01-17] MEDS ORDERED: PANTOPRAZOLE 40 MG TABLET PO SCH (09:00)
[2017-01-17 11:43] VITALS: BP 151/62
[2017-01-17] MEDS: ENOXAPARIN 40 MG/0.4 ML SYRINGE SUBCUT SCH (12:32)
== END 2017-01-17 14:35 | disposition home or self-care (01) ==
LOC: N.ED 08:48 → N.EDINP 08:48 → N.TELES 11:06
PROVIDERS: ADMIT Internal Medicine; ATTEND Internal Medicine